=== PATIENT | female | born 1960 | race Caucasian/White ===

== ENCOUNTER 2021-01-28 07:34 | Emergency (ER) | payer BC ==
[2021-01-28 08:46] VITALS: BMI 42.1
[2021-01-28] MEDS ORDERED: BAMLANIVIMAB 700 MG, ETESEVIMAB 1,400 MG in SODIUM CHLORIDE 100 ML IVPB ONE (10:30)
[2021-01-28 12:47] VITALS: BP 127/78; PULSE 68; TEMP 98.9
== END 2021-01-28 14:38 | disposition home or self-care (01) ==
LOC: JER 07:34 → JCOVINFU 07:34
DX: U07.1 COVID-19 (principal)
CPT/HCPCS: 99284-25; M0245; Q0239; Q0245